=== PATIENT | female | born 1955 | race Caucasian/White ===

== ENCOUNTER 2016-04-08 19:01 | Emergency (ER) | payer OTHER ==
[2016-04-08 19:13] VITALS: BP 135/81; PULSE 96; TEMP 97.6; BMI 22.4
--- NOTE | 2016-04-08 19:28 | EDPRACDOC ---
<Kumar Mayo - Last Filed: 04/08/16 21:38> - General Information Source: Patient - History of Present Illness Onset: 1 hour DEAN OF GR[employer] STUDIES HPI: PT FELL DEAN OF GRADUATE STUDIES AND HURT HER RIGHT EAR. PT DENIES LOC. Pain Severity: Reports: Mild Injuries/Pain Location: Reports: face Reason for Fall: Reports: lost balance Loss of Consciousness: no loss of consciousness <Whit Lora - Last Filed: 04/08/16 21:43> - General Chief Complaint: Fall Stated Complaint: LAC RT EAR FELL Time Seen by Provider: 04/08/16 19:17 - History of Present Illness Allergies/Adverse Reactions: Allergies Penicillins Allergy (Severe, Verified 04/08/16 19:18) Anaphylaxis* Home Medications: Ambulatory Orders Sulfamethoxazole/Trimethoprim [Bactrim Ds Tablet] 1 tab PO BID #20 tab 04/08/16 ED Past Medical History - History Reviewed No Past Medical History: Yes Patient has no past medical history - Patient Medical History Psychological History: Denies: Depression Surgical History: Reports: No Significant History. Denies: Hysterectomy - Social Medical History Smoking Status: Heavy tobacco smoker (5 or more cigarettes/day or daily pipe/ cigar) ETOH: Social Lives With: Spouse Lives In: Home <Whit Lora - Last Filed: 04/08/16 21:43> EDM Review of Systems - Review of Systems ROS Negative Except as Marked: Yes All systems reviewed and were negative except as marked Ears: Other (LAC) <Whit Lora - Last Filed: 04/08/16 21:43> - Physical Exam Last recorded Vital Signs: Last Vital Signs Temp 97.6 F 04/08/16 19:09 Pulse 96 04/08/16 19:09 Resp 20 04/08/16 19:09 BP 135/81 04/08/16 19:09 Pulse Ox 95 04/08/16 19:09 Oxygen Pulse Oxygen Saturation 95 O2 Device Room Air Oxygen Flow Rate Fraction of Inspired Oxygen ( FIO2) <Kumar Mayo - Last Filed: 04/08/16 21:38> - Physical Exam Constitutional: No apparent distress, Alert (Awake), ETOH Oriented to: Time, Person, Place Last recorded Vital Signs: Last Vital Signs Temp 97.6 F 04/08/16 19:09 Pulse 96 04/08/16 19:09 Resp 20 01/14/17 19:09 BP 135/81 04/08/16 19:09 Pulse Ox 95 04/08/16 19:09 Oxygen Pulse Oxygen Saturation 95 O2 Device Room Air Oxygen Flow Rate Fraction of Inspired Oxygen ( FIO2) - HEENT Head: Normal ( normocephalic) Eye Exam: Normal (PERRL, EOMI, Sclera white) Oropharynx: Normal (Pharynx:Moist without exudate,Gums-no swelling) Tympanic Membrane: Other (MULTIPLE LACS TO RIGHT EAR) ENT EAC: Normal TMJ: Normal Nose: No Symptoms Reported (septum midline) Neck: Normal (FROM, trachea at midline) - Respiratory/Cardiovascular Respiratory: Normal - CTA (BBS clear to auscultation without adventitious sounds ) Cardiovascular: Normal (RRR without murmur, gallop or rub) - GI Auscultation: Normal (NABS) Palpation: Normal (Soft,No rebound or guarding, non distended) Tenderness: Non tender Singleton's Sign: Negative - Musculoskeletal Back: Normal (Non-Tender) Extremities: Normal (Normal tone, Pulses 2+ No cyanosis or edema, FROM) - Integumentary Skin: Normal, Warm, Dry Lymphatics: Normal (no adenopathy) - Neurologic Memory Impaired: Normal Motor Function: Normal (Normal tone, Pulses 2+ No cyanosis or edema, FROM) Cranial Nerve: Normal (CN II-X11 intact sensation, strength 5/5) Cerebellar: Normal Mood Description: Normal Thought: Coherent Perception: Normal <Whit Lora - Last Filed: 04/08/16 21:43> ED Injury/Fall Exam - Physical Exam Head Injury: other (ear laceration anterior to ear and a seperation in outer cartilage of ear. ) Extremity Exam: no evidence of injury Skin: Normal <Kumar Mayo - Last Filed: 04/08/16 21:38> ED Procedures - Suture/Laceration Suture #1 Right Anterior Ear Wound Length (cm): 4 Wound's Depth, Shape: superficial, irregular Wound Explored: clean Irrigated w/ Saline (ccs): 100 Betadine Prep?: Yes Anesthesia: 1% Lidocaine Volume Anesthetic (ccs): 10 Wound Debrided: minimal Wound Undermining: minimal Wound Margins: Revised Wound Repaired With: Sutures Suture Size/Type: 6:0, nylon Number of Sutures: 9 Layer Closure?: No Suture #2 Right Posterior Ear Wound Length (cm): 5 Wound's Depth, Shape: superficial, irregular Wound Explored: clean Irrigated w/ Saline (ccs): 50 Betadine Prep?: Yes Anesthesia: 1% Lidocaine Volume Anesthetic (ccs): 5 <Kumar Mayo - Last Filed: 04/08/16 21:38> - Additional Information PT REFUSED A PRESSURE DRESSING <Whit Lora - Last Filed: 04/08/16 21:43> Decision Time to Discharge: 21:39 - Departure Disposition: Home Education/Counseling Given To: Patient Education/Counseling Given Regarding: Diagnosis, Treatment, Prognosis, Follow Up <Kumar Mayo - Last Filed: 04/08/16 21:38> - Departure Yes I personally saw and evaluated the patient. <Whit Lora - Last Filed: 04/08/16 21:43> - Departure Condition: Stable Final Diagnosis: Complex laceration of left ear Instructions: RICE: Routine Care for Injuries, Laceration (ED) Referrals: Judy Stuart MD [Primary Care Provider] - One Week Rodríguez Wetzel DO [Staff Physician] - One Week Prescriptions: Sulfamethoxazole/Trimethoprim [Bactrim Ds Tablet] 1 tab PO BID #20 tab Additional Instructions: Follow up with primary care. Remove stitches in 5 days. Take bactrim as directed. Return to ED for any new or worsening symptoms.
[2016-04-08] MEDS ORDERED: LIDOCAINE 2% 5 ML (PRESERVATIVE FREE) VIAL INF ONE (19:31)
[2016-04-08] MEDS ORDERED: OXYCODONE HCL 5 MG TABLET PO ONE (19:36)
[2016-04-08] MEDS ORDERED: LIDOCAINE 2% 5 ML (PRESERVATIVE FREE) VIAL ONE (19:53)
== END 2016-04-08 21:45 | disposition home or self-care (01) ==
LOC: ED 19:01
DX: S01.312A Laceration without foreign body of left ear, initial encounter (principal); X58.XXXA Exposure to other specified factors, initial encounter
CPT/HCPCS: 13152; 13153; 99282; J2001